=== PATIENT | male | born 1990 ===

== ENCOUNTER 2021-02-12 09:03 | Emergency (ER) | payer SELFPAY ==
--- NOTE | 2021-02-12 10:54 | Emergency Department Report ---
ED General Adult HPI - General Chief complaint: Headache Stated complaint: headache Time Seen by Provider: 02/12/21 10:49 Source: patient Mode of arrival: Ambulatory Limitations: No Limitations - History of Present Illness Initial comments: 30-year-old male patient presents to the emergency department complaints of nontraumatic left frontal headache, nasal congestion, nonproductive cough, and nausea starting last night. No known sick contacts. No current steroid or antibiotic use. No recent travel. No recent vaccinations. Denies fever, chills, neck stiffness, rash, ear pain, sore throat, abdominal pain, vomiting, vision changes, syncope, seizure. Denies all other complaints at this time. - Related Data Previous Rx's Medication Instructions Recorded Last Taken Type Brompheniramine/Pseudoephed/Dm 30 ml PO Q4H #1 bottle 02/12/21 Unknown Rx [Bromfed Dm Cough Syrup] Ondansetron [Zofran Odt] 4 mg PO Q4H #20 tab.rapdis 02/12/21 Unknown Rx Allergies Allergy/AdvReac Type Severity Reaction Status Date / Time No Known Allergies Allergy Unverified 02/12/21 09:05 ED Review of Systems ROS: Stated complaint: HEADACHE/SOB/BODYACHES Other details as noted in HPI Other: GENERAL: Negative for fever. HEENT: Positive for nasal congestion. CARDIOVASCULAR: Negative for chest pain. PULMONARY: Positive for cough. GASTROINTESTINAL: Positive for nausea. MUSCULOSKELETAL: Negative for back pain. NEUROLOGICAL: Positive for headache. INTEGUMENTARY: Negative for rash. ED Past Medical Hx - Past Medical History Previous Medical History?: No - Surgical History Past Surgical History?: No - Medications Home Medications: Home Medications Medication Instructions Recorded Confirmed Last Taken Type Brompheniramine/Pseudoephed/Dm 30 ml PO Q4H #1 bottle 02/12/21 Unknown Rx [Bromfed Dm Cough Syrup] Ondansetron [Zofran Odt] 4 mg PO Q4H #20 tab.rapdis 02/12/21 Unknown Rx ED Physical Exam - General Limitations: No Limitations - Other Other exam information: General: Awake and alert. No acute distress. Head: Atraumatic, normocephalic. Left frontal and left maxillary sinus tenderness. No pain with extraocular movements. Eyes: EOMI. Pupils are equal and round. Normal sclera and conjunctiva. ENT: Nasal congestion noted. Oral mucosa is moist. Normal pharyngeal exam. Neck: Supple. No lymphadenopathy. Pulmonary: No respiratory distress. Clear to auscultation bilaterally. Cardiac: Regular rate and rhythm. Pulses are palpable and equal bilaterally. No lower extremity cyanosis or edema. Skin: Warm and dry. No rashes. Abdomen: Soft, non-tender, non-protuberant. No guarding, rigidity, or rebound. Bowel sounds are normal. No organomegaly or masses noted. Back: Normal alignment. No CVA tenderness. Extremities: Symmetrical. Full range of motion intact. Neurological: Alert and oriented, appropriately interactive, no focal deficits. Psych: Cooperative. Appropriate mood and affect. Speech is evenly metered. Thoughts are logically construed. ED Course Vital Signs 02/12/21 02/12/21 09:06 11:33 Temperature 98.4 F Pulse Rate 88 62 Respiratory 16 18 Rate Blood Pressure 135/96 Blood Pressure 136/85 [Left] O2 Sat by Pulse 98 98 Oximetry ED Medical Decision Making - Medical Decision Making Differential diagnosis including but not limited to: meningitis, sinusitis, periorbital/orbital cellulitis, dental abscess, tension headache, migraine headache Patient presents to the emergency department with complaints of nontraumatic headache, nasal congestion, and nausea. Neurological exam is nonfocal. Physical exam is remarkable for nasal congestion and sinus tenderness. Vital s igns are stable. Clinical presentation is suggestive of sinusitis. Patient will be discharged home with appropriate symptomatic treatment. The patient is alert, talkative, interactive and in no distress. The patient is neurovascularly intact and ambulatory in emergency department. History, exam, diagnostic testing, and current condition do not suggest worrisome pathology to warrant further testing, emergent intervention, admission, or specialist evaluation at this point. Additional testing such as CT imaging or lumbar puncture is not indicated at this time, but should be considered if symptoms worsen or recur. Discussed findings, presumptive diagnosis, need for follow-up and specific signs/symptoms that should prompt immediate return to the emergency department. Instructions were explained in detail to the patient in addition to giving written discharge information. Patient expressed understanding and was given the opportunity to ask questions, all of which were satisfactorily answered prior to discharge home. Critical care attestation.: If time is entered above; I have spent that time in minutes in the direct care of this critically ill patient, excluding procedure time. ED Disposition Clinical Impression: Viral infection Sinusitis Qualifiers: Sinusitis location: unspecified location Chronicity: unspecified Qualified Code(s): J32.9 - Chronic sinusitis, unspecified Disposition: DC- TO HOME OR SELFCARE Is pt being admited?: No Does the pt Need Aspirin: No Condition: Stable Instructions: Sinus Headache Additional Instructions: Take Tylenol every 4 hours and Motrin every 8 hours as needed for pain. Take Bromfed as directed for cough/cold symptoms. Take Zofran as directed for nausea. Rest. Drink plenty fluids. Wash hands frequently to prevent disease transmission. Do not share food or drinks with others. Follow-up with primary care provider this week. Call today to schedule an appointment. See referral information below. Return to the emergency department immediately for new or worsening symptoms. Prescriptions: Brompheniramine/Pseudoephed/Dm [Bromfed Dm Cough Syrup] 30 ml PO Q4H #1 bottle Ondansetron [Zofran Odt] 4 mg PO Q4H #20 tab.rapdis Referrals: [facility] [Provider Group] - 3-5 Days [facility] [Outside] - 3-5 Days [facility] [Outside] - 3-5 Days [facility] [Outside] - 3-5 Days LESLIE BULLOCK MD [Staff Physician] - 3-5 Days Forms: Work/School Release Form(ED) Time of Disposition: 10:56
[2021-02-12 11:35] VITALS: BP 136/85
== END 2021-02-12 11:36 | disposition home or self-care (01) ==
LOC: ED 09:03
DX: B34.9 Viral infection, unspecified (principal); J32.9 Chronic sinusitis, unspecified
CPT/HCPCS: 99281